=== PATIENT | female | born 1940 | race Two or more races ===

== ENCOUNTER 2017-07-07 07:16 | Outpatient (CLI) | payer OTHER ==
[~2017-07-07 07:16] MED LIST: AVALIDE 150-12.1 TA1 PO; HYZAAR 100-121 UDTAB; LEVOXIL; NIASPAN500 MG PO; PEPCID20 MG PO; PHENERGAN25 MG PO; SIMVASTATIN40 MG
== END 2017-07-07 07:24 | disposition home or self-care (01) ==
LOC: LAB 07:16
DX: I11.9 Hypertensive heart disease without heart failure (principal); Z95.0 Presence of cardiac pacemaker; E78.00 Pure hypercholesterolemia, unspecified; I73.89 Other specified peripheral vascular diseases

== ENCOUNTER 2018-02-25 03:50 | Emergency (ER) | payer OTHER ==
[~2018-02-25] VITALS: Ht 152.4 cm; Wt 63.0 kg
[2018-02-25] MEDS ORDERED: SKELAXIN800 MG PO (04:54)
[2018-02-25] MEDS ORDERED: PEPCID AC20 MG PO (04:54)
== END 2018-02-25 05:03 | disposition home or self-care (01) ==
LOC: ER 03:50
DX: M54.2 Cervicalgia (principal); M62.838 Other muscle spasm

== ENCOUNTER 2018-07-03 07:08 | Outpatient (CLI) | payer OTHER ==
[~2018-07-03 07:08] MED LIST changes: +PEPCID AC20 MG PO; +SKELAXIN800 MG PO
== END 2018-07-03 07:17 | disposition home or self-care (01) ==
LOC: LAB 07:08
DX: I11.9 Hypertensive heart disease without heart failure (principal); Z95.0 Presence of cardiac pacemaker; E78.00 Pure hypercholesterolemia, unspecified; I73.89 Other specified peripheral vascular diseases; Z80.3 Family history of malignant neoplasm of breast

== ENCOUNTER 2018-12-04 09:57 | Outpatient (CLI) | payer OTHER | END 2018-12-04 10:07 | disposition home or self-care (01) | LOC: MAMO-SONO 09:57 | DX: Z12.31 Encounter for screening mammogram for malignant neoplasm of breast (principal); Z87.898 Personal history of other specified conditions; I11.9 Hypertensive heart disease without heart failure; Z95.0 Presence of cardiac pacemaker; E78.00 Pure hypercholesterolemia, unspecified; I73.89 Other specified peripheral vascular diseases; Z80.3 Family history of malignant neoplasm of breast; N63.10 Unspecified lump in the right breast, unspecified quadrant; N63.20 Unspecified lump in the left breast, unspecified quadrant ==